=== PATIENT | male | born 2005 | race Caucasian/White ===

== ENCOUNTER 2025-06-04 21:02 | Emergency (ER) | payer OTHER | END 2025-06-04 21:52 | disposition home or self-care (01) | LOC: ERS 21:02 | DX: S00.93XA Contusion of unspecified part of head, initial encounter (principal); M54.2 Cervicalgia; W17.81XA Fall down embankment (hill), initial encounter; Z55.6 Problems related to health literacy | CPT/HCPCS: 99282 ==